=== PATIENT | male | born 2000 | race Caucasian/White ===

== ENCOUNTER 2023-12-31 07:04 | Inpatient (IN) | payer MEDICAID ==
[~2023-12-31] VITALS: Ht 182.9 cm; Wt 82.3 kg
[2023-12-31 07:05] VITALS: BP_SYST 118; PULSE 123; RESP 20; TEMP 101; O2SAT 98
[2023-12-31 07:42] LABS: BASOPHILS % (AUTO) 0.2 % (0.0-2.0); EOSINOPHILS # (AUTO) 0.3 K/uL (0.0-0.4); EOSINOPHILS % (AUTO) 5.9 % (0.0-4.0); HEMOGLOBIN 13.8 g/dL (14.0-18.0); LYMPHOCYTES # (AUTO) 0.4 K/uL (1.0-5.5); LYMPHOCYTES % (AUTO) 10.1 % (20.5-51.5); MEAN CORPUSCULAR HEMOGLOBIN 29 pg (27-31); MEAN CORPUSCULAR HGB CONC 34 % (32-36); MEAN CORPUSCULAR VOLUME 86 fL (79.0-98.0); MONOCYTES # (AUTO) 0.4 K/uL (0.0-1.0); MONOCYTES % (AUTO) 9.5 % (1.7-9.3); NEUTROPHILS # (AUTO) 3.2 K/uL (1.8-7.7); NEUTROPHILS % (AUTO) 74.3 % (40.0-70.0); PLATELET COUNT (AUTO) 183 K/uL (130-430); RED BLOOD CELL COUNT(AUTO) 4.78 MIL/uL (4.2-6.2); RED CELL DISTRIBUTION WIDTH 14.4 % (9.0-15.0); WHITE BLOOD COUNT (AUTO) 4.4 K/uL (4.8-10.8)
[2023-12-31 07:48] LABS: ERYTHROCYTE SEDIMENTATION RATE 35 MM/HR (0-15)
[2023-12-31 07:51] LABS: INR 1.1 (0.80-1.20)
[2023-12-31] MEDS: ONDANSETRON 4 MG ODT TAB PO ONE (07:54)
[2023-12-31] MEDS ORDERED: ONDANSETRON 4 MG ODT TAB ONE (07:54)
[2023-12-31] MEDS: LIDOCAINE 1% 10 MG/ML, 20 ML MDV INJ ONE (07:55)
[2023-12-31 08:02] LABS: CALCIUM 8.7 mg/dL (8.4-11.0); CREATININE 1.05 mg/dL (0.55-1.30); POTASSIUM 3.9 mmol/L (3.5-5.1)
[2023-12-31 08:02] LABS: INFLUENZA TYPE A Negative (NEGATIVE); INFLUENZA TYPE B NEGATIVE (NEGATIVE)
[2023-12-31 08:51] LABS: CSF GLUCOSE 65 mg/dL (40-70); CSF PROTEIN 36 mg/dL (15-45)
[2023-12-31 09:58] LABS: CSF APPEARANCE CLEAR (CLEAR); CSF COLOR COLORLESS (COLORLESS); CSF LYMPHOCYTES 95 % (40-60); CSF MONOCYTES 5 % (15-45); CSF NEUTROPHILS 0 % (0-6); CSF RED BLOOD CELL COUNT 2 /uL (0-0); CSF TUBE NUMBER 3; CSF WHITE BLOOD CELL COUNT 12 /uL (0-5)
[2023-12-31] MEDS ORDERED: cefTRIAXone 2 GM VIAL ONE (10:17)
[2023-12-31] MEDS ORDERED: LORazepam 2 MG/ML VIAL IVP PRN (12:45)
[2023-12-31] MEDS ORDERED: NALOXONE HCL 0.4 MG/ML AMP (NARCAN) IVP PRN ×2 (12:45)
[2023-12-31] MEDS ORDERED: ACETAMINOPHEN 325 MG TABLET PO PRN (13:15)
[2023-12-31 14:34] VITALS: BP_SYST 115; PULSE 75; RESP 17; TEMP 98.2; O2SAT 100
[2023-12-31 14:38] LABS: BILIRUBIN,URINE NEGATIVE (NEGATIVE); BLOOD, URINE NEGATIVE (NEGATIVE); CLARITY/URINE CLEAR (CLEAR); COLOR,URINE YELLOW (YELLOW); GLUCOSE,URINE NEGATIVE (NEGATIVE); KETONES,URINE TRACE (NEGATIVE); LEUKOCYTE ESTERASE ,URINE NEGATIVE (NEGATIVE); NITRITE, URINE NEGATIVE (NEGATIVE); PROTEIN URINE TRACE (NEGATIVE); UROBILINOGEN,URINE 0.2 (0.2-1.0)
[2023-12-31] MEDS: HYDROcodone/ACETAMIN 10-325 MG TAB PO PRN (15:35)
[2023-12-31] MEDS: ONDANSETRON HCL 4 MG/2 ML VIAL IVP PRN (15:41)
[2023-12-31] MEDS: NORMAL SALINE 5 ML DISP.SYRIN IVF SCH (15:41)
[2023-12-31] MEDS: VANCOMYCIN HCL 1,000 MG in NS 250 ML IV SCH (15:43)
[2023-12-31 17:40] VITALS: BP_SYST 115; PULSE 75; RESP 17; TEMP 98.2; O2SAT 100
[2023-12-31 20:00] VITALS: BP_SYST 110; PULSE 97; RESP 16; TEMP 101.4; O2SAT 97
[2023-12-31] MEDS: ACETAMINOPHEN 325 MG TABLET PO PRN (20:12)
[2023-12-31 22:35] VITALS: O2SAT 97
[2024-01-01 00:29] VITALS: BP_SYST 123; PULSE 51; RESP 16; TEMP 99.9; O2SAT 95
[2024-01-01 05:02] LABS: BASOPHILS % (AUTO) 0.3 % (0.0-2.0); EOSINOPHILS # (AUTO) 0.4 K/uL (0.0-0.4); EOSINOPHILS % (AUTO) 11.3 % (0.0-4.0); HEMOGLOBIN 13.1 g/dL (14.0-18.0); LYMPHOCYTES # (AUTO) 1.1 K/uL (1.0-5.5); LYMPHOCYTES % (AUTO) 31.2 % (20.5-51.5); MEAN CORPUSCULAR HEMOGLOBIN 29 pg (27-31); MEAN CORPUSCULAR HGB CONC 34 % (32-36); MEAN CORPUSCULAR VOLUME 85 fL (79.0-98.0); MONOCYTES # (AUTO) 0.5 K/uL (0.0-1.0); MONOCYTES % (AUTO) 14.6 % (1.7-9.3); NEUTROPHILS # (AUTO) 1.5 K/uL (1.8-7.7); NEUTROPHILS % (AUTO) 42.6 % (40.0-70.0); PLATELET COUNT (AUTO) 153 K/uL (130-430); RED BLOOD CELL COUNT(AUTO) 4.56 MIL/uL (4.2-6.2); WHITE BLOOD COUNT (AUTO) 3.5 K/uL (4.8-10.8)
[2024-01-01 05:12] LABS: ALBUMIN 3.1 g/dL (3.4-4.8); CALCIUM 8.3 mg/dL (8.4-11.0); CREATININE 1.11 mg/dL (0.55-1.30); POTASSIUM 3.6 mmol/L (3.5-5.1); TOTAL BILIRUBIN 0.1 mg/dL (0.0-1.0)
[2024-01-01 08:00] VITALS: BP_SYST 113; PULSE 88; RESP 16; TEMP 98; O2SAT 99
[2024-01-01] MEDS ORDERED: cefTRIAXone 1 GM IVPB PREMIX 50 ML IV SCH (09:00)
[2024-01-01] MEDS: cefTRIAXone 2 GM IVPB PREMIX 50 ML IV SCH (12:01)
[2024-01-01 12:47] VITALS: BP_SYST 119; PULSE 84; RESP 18; TEMP 98.5; O2SAT 97
[2024-01-01 16:06] VITALS: BP_SYST 101; PULSE 80; RESP 18; TEMP 100; O2SAT 95
[2024-01-01 20:01] VITALS: BP_SYST 115; PULSE 79; RESP 18; TEMP 100.6; O2SAT 98
[2024-01-01] MEDS: HYDROcodone/ACETAMIN 5-325 MG TAB (NORCO/ VICODIN) PO PRN (20:30)
[2024-01-02 00:26] VITALS: BP_SYST 131; PULSE 65; RESP 18; TEMP 98.9
[2024-01-02 04:25] LABS: BASOPHILS % (AUTO) 0.4 % (0.0-2.0); EOSINOPHILS # (AUTO) 0.6 K/uL (0.0-0.4); EOSINOPHILS % (AUTO) 14.7 % (0.0-4.0); HEMOGLOBIN 13.1 g/dL (14.0-18.0); LYMPHOCYTES # (AUTO) 2.1 K/uL (1.0-5.5); LYMPHOCYTES % (AUTO) 46.9 % (20.5-51.5); MEAN CORPUSCULAR HEMOGLOBIN 29 pg (27-31); MEAN CORPUSCULAR HGB CONC 34 % (32-36); MEAN CORPUSCULAR VOLUME 85 fL (79.0-98.0); MONOCYTES # (AUTO) 0.6 K/uL (0.0-1.0); MONOCYTES % (AUTO) 14.5 % (1.7-9.3); NEUTROPHILS % (AUTO) 23.5 % (40.0-70.0); PLATELET COUNT (AUTO) 152 K/uL (130-430); RED BLOOD CELL COUNT(AUTO) 4.58 MIL/uL (4.2-6.2); RED CELL DISTRIBUTION WIDTH 14.2 % (9.0-15.0); WHITE BLOOD COUNT (AUTO) 4.4 K/uL (4.8-10.8)
[2024-01-02 04:57] LABS: ALBUMIN 3.2 g/dL (3.4-4.8); CALCIUM 8.1 mg/dL (8.4-11.0); CREATININE 0.82 mg/dL (0.55-1.30); POTASSIUM 3.6 mmol/L (3.5-5.1); TOTAL BILIRUBIN 0.1 mg/dL (0.0-1.0)
[2024-01-02 05:21] LABS: ERYTHROCYTE SEDIMENTATION RATE 13 MM/HR (0-15)
[2024-01-02 08:00] VITALS: BP_SYST 101; PULSE 63; RESP 18; TEMP 98.1; O2SAT 98
[2024-01-02 12:04] VITALS: BP_SYST 98; PULSE 68; RESP 18; TEMP 97.9; O2SAT 100
[2024-01-02 17:10] VITALS: BP_SYST 105; PULSE 71; RESP 18; TEMP 97.9; O2SAT 100
[2024-01-02 20:05] VITALS: BP_SYST 111; PULSE 85; RESP 18; TEMP 98.4
[2024-01-03] VITALS (7 sets, daily range): BP systolic 100–115; PULSE 68–97; RESP 16–20; TEMP 98–100.5; O2SAT 98–100
[2024-01-03 06:03] LABS: BASOPHILS % (AUTO) 0.7 % (0.0-2.0); EOSINOPHILS # (AUTO) 0.6 K/uL (0.0-0.4); EOSINOPHILS % (AUTO) 9.8 % (0.0-4.0); HEMATOCRIT 38.2 % (36-54); LYMPHOCYTES # (AUTO) 1.8 K/uL (1.0-5.5); MEAN CORPUSCULAR HEMOGLOBIN 29 pg (27-31); MEAN CORPUSCULAR HGB CONC 34 % (32-36); MEAN CORPUSCULAR VOLUME 85 fL (79.0-98.0); MONOCYTES # (AUTO) 0.5 K/uL (0.0-1.0); MONOCYTES % (AUTO) 7.4 % (1.7-9.3); NEUTROPHILS # (AUTO) 3.2 K/uL (1.8-7.7); NEUTROPHILS % (AUTO) 52.1 % (40.0-70.0); PLATELET COUNT (AUTO) 170 K/uL (130-430); RED BLOOD CELL COUNT(AUTO) 4.52 MIL/uL (4.2-6.2); RED CELL DISTRIBUTION WIDTH 14.1 % (9.0-15.0); WHITE BLOOD COUNT (AUTO) 6.1 K/uL (4.8-10.8)
[2024-01-03 07:11] LABS: ERYTHROCYTE SEDIMENTATION RATE 21 MM/HR (0-15)
[2024-01-03 07:33] LABS: ALBUMIN 3.3 g/dL (3.4-4.8); CALCIUM 8.1 mg/dL (8.4-11.0); CREATININE 0.85 mg/dL (0.55-1.30); POTASSIUM 3.4 mmol/L (3.5-5.1); TOTAL BILIRUBIN 0.1 mg/dL (0.0-1.0)
[2024-01-03] MEDS ORDERED: GADOBENATE DIMEGLUMINE 529 MG/ML, 5 ML VIAL IV ONE (09:28)
[2024-01-03] MEDS: POTASSIUM CHLORIDE 20 MEQ TABLET.ER PO ONE (10:37)
[2024-01-03 13:06] LABS: HEPATITIS A AB, IgM Negative (Negative); HEPATITIS B CORE AB, IgM Negative (Negative); HEPATITIS B SURFACE AG Negative (Negative); HEPATITIS C VIRUS AB Non Reactive (Non Reactive)
[2024-01-03] MEDS: ACYCLOVIR IV 750 MG in D5W 100 ML IV SCH (16:31)
== END 2024-01-03 22:20 | disposition short-term general hospital (02) | DRG 50 ==
LOC: SED 07:04 → SMU 12:26
PROVIDERS: ADMIT Preventive Medicine Preventive Medicine/Occupational Environmental Medicine; ATTEND Preventive Medicine Preventive Medicine/Occupational Environmental Medicine
PROC: 009U3ZX Drainage of Spinal Canal, Percutaneous Approach, Diagnostic (ICD-10-PCS; principal; 2023-12-31)
DX: G03.9 Meningitis, unspecified (principal); E44.1 Mild protein-calorie malnutrition; D70.9 Neutropenia, unspecified; E83.51 Hypocalcemia; E87.1 Hypo-osmolality and hyponatremia; E88.09 Other disorders of plasma-protein metabolism, not elsewhere classified; R65.10 Systemic inflammatory response syndrome (SIRS) of non-infectious origin without acute organ dysfunction; D64.9 Anemia, unspecified; E87.6 Hypokalemia; B34.9 Viral infection, unspecified; H53.143 Visual discomfort, bilateral; Z88.8 Allergy status to other drugs, medicaments and biological substances; Z68.24 Body mass index [BMI] 24.0-24.9, adult; R73.9 Hyperglycemia, unspecified; R74.01 Elevation of levels of liver transaminase levels; H53.149 Visual discomfort, unspecified
CPT/HCPCS: 36415; 70450-TC; 70553; 71045; 76700; 80048; 80053; 80074; 80202; 81001; 81003; 82947; 83605; 84157; 85025; 85048; 85610; 85651; 85730; 87040; 87070; 87205; 89051; 96365; 99285; A9577; J0133; J0696; J2001; J2405; J3370; J7050; J7060; Q0162